=== PATIENT | female | born 1985 | race Two or more races ===

== ENCOUNTER 2022-04-08 00:54 | Emergency (ER) | payer BC ==
[2022-04-08 01:48] VITALS: BP 100/54; PULSE 79; TEMP 98.4; BMI 21.2
[2022-04-08 02:40] LABS: HEMATOCRIT 35.9 % (32.4-45.2); HEMOGLOBIN 11.8 GM/dL (10.7-15.3); MCH 28.8 pg (25.7-33.7); MEAN CELL VOLUME 87.5 fl (80-96); MEAN PLT VOLUME 8.1 fl (7.5-11.1); PLATELET COUNT 255 10^3/uL (134-434); RDW 14.1 % (11.6-15.6); WHITE BLOOD COUNT 11.2 K/mm3 (4.0-10.0)
[2022-04-08] MEDS ORDERED: ACETAMINOPHEN 325 MG TABLET (FP) PO ONE (02:40)
[2022-04-08] MEDS ORDERED: ACETAMINOPHEN 325 MG TABLET (FP) ONE (02:44)
[2022-04-08 02:57] LABS: INR 1.05 (0.83-1.09); PROTHROMBIN TIME (PATIENT) 12.1 SEC (9.7-13.0)
[2022-04-08 03:00] LABS: ACTIVATED PTT 28.8 SECONDS (25.2-36.5)
[2022-04-08 03:07] LABS: ALBUMIN 3.6 g/dl (3.4-5.0); BLOOD UREA NITROGEN 11.8 mg/dL (7-18)
[2022-04-08 03:10] LABS: CREATININE 0.7 mg/dL (0.55-1.3)
[2022-04-08 03:12] LABS: BILIRUBIN,TOTAL 0.2 mg/dL (0.2-1); TOT PROT 6.9 g/dl (6.4-8.2)
== END 2022-04-08 04:53 | disposition home or self-care (01) ==
LOC: JER 00:54
DX: O03.9 Complete or unspecified spontaneous abortion without complication (principal); N93.9 Abnormal uterine and vaginal bleeding, unspecified
CPT/HCPCS: 36415; 76830-TC; 80053; 84702; 85027; 85610; 85730; 86850; 86900; 86901; 99284-25